=== PATIENT | male | born 1965 | race Caucasian/White ===

== ENCOUNTER 2016-04-09 16:44 | Emergency (ER) | payer BC, MEDICARE ==
[2016-04-09] MEDS ORDERED: NORCO, ANEXSIA 5/325MG TABLET (HYDROcodone/ACETAMINOPHEN) As Ordered ONE (18:55)
--- NOTE | 2016-04-09 20:00 | REPUSA ---
Clinical history: left axillary mass. Findings: Real-time ultrasound imaging of the left axilla was performed. There is a complex collectio n in the proximal left upper arm in the axillary region measuring 1.6 x 0.9 x 1.5 cm. The lesion appe ars to be predominately solid in nature and is well circumscribed. The mass appears to be located in the subcutaneous tissues. Impression: Discrete complex lesion as described. Differential diagnosis includes necrotic lymph node versus abscess. Follow-up is suggested as clinically indicated.
[2016-04-09] MEDS ORDERED: NORCO 5/325MG TABLET (BULK) As Ordered ONE (20:30)
[2016-04-09] MEDS ORDERED: BACTRIM 160MG/800MG DS TAB As Ordered ONE (20:30)
--- NOTE | 2016-04-09 20:43 | EDDOCDS ---
Nurse's Notes [facility] Name: Cruzito Somers Age: 50 yrs Sex: Male : 1965 Arrival Date: 04/09/2016 Time: 16:44 Bed TR2 Private MD: NO PRIMARY PHYSICIAN, . Diagnosis: Localized enlarged lymph nodes-VERSUS EARLY ABSCESS Presentation: 04/09 16:52 Presenting complaint: Patient states: boil to left arm pit that started a few months dsf ago and it has gotten worse the past week. Adult Sepsis Screening: The patient does not have new or worsening altered mentation. Patient's respiratory rate is less than 22. Systolic blood pressure is greater than 100. Patient has a qSOFA score of 0- Negative Sepsis Screen. Status: Patient is not a donor services team leader or dependent. Transition of care: patient was not received from another setting of care. 16:52 Acuity: KLEBER Level 4 dsf 16:52 Method Of Arrival: Walkin/Carried/Asstd dsf Triage Assessment: 16:54 General: Appears in no apparent distress, Behavior is appropriate for age, cooperative. dsf Pain: Location: left axilla Pain currently is 8 out of 10 on a pain scale. Quality of pain is described as sharp. HIV screening NA for this visit Offered previously. Historical: - Allergies: no known allergies; - Home Meds: 1. none - PMHx: none; - PSHx: Knee Arthroscopy; Vasectomy; - Social history: Smoking status: Patient uses tobacco products, current every day smoker. No barriers to communication noted, The patient speaks fluent Georgian, Speaks appropriately for age. - Family history: Not pertinent. - : The pt / caregiver states he / she is not on anticoagulants. Home medication list is obtained from the patient. - Exposure Risk Screening:: None identified. Screenin:42 Screening information is obtained from the patient. Fall risk: No risks identified. cz Assistance ADL's: requires no assistance with activities of daily living. Abuse/DV Screen: The patient / caregiver reports he/she is: not in a situation that causes fear, pain or injury. Nutritional screening: No deficits noted. home support is adequate. Assessment: 18:56 General: Appears in no apparent distress, Behavior is appropriate for age, cooperative. dsf Pain: Location: left axilla. Neurological: Level of Consciousness is awake, alert. Cardiovascular: Capillary refill < 3 seconds. Respiratory: Airway is patent Respiratory effort is even, unlabored, Respiratory pattern is regular, symmetrical. Derm: Skin is pink, warm & dry. Musculoskeletal: Reports pain to left axilla when arm is down. Vital Signs: 16:46 BP 122 / 80; Pulse 74; Resp 18 S; Temp 96.1(O); Pulse Ox 97% on R/A; Weight 88.45 kg gr2 (R); Height 6 ft. 1 in. (185.42 cm) (R); Pain 5/10; 20:21 BP 130 / 78; Pulse 65; Resp 18; Temp 96.5(O); Pulse Ox 97% on R/A; Pain 7/10; mdr 16:46 Body Mass Index 25.73 (88.45 kg, 185.42 cm) gr2 Vitals: 16:46 Log In Time: April 09, 2016 at 16:46. gr2 ED Course: 16:46 Patient visited by Carlos Alberto Howard. gr2 16:46 NO PRIMARY PHYSICIAN, . is Private Physician. gr2 16:46 Patient moved to Waiting gr2 16:48 Patient visited by Carlos Alberto Howard. gr2 16:48 Patient moved to Pre RCE gr2 16:53 Triage Initiated dsf 18:28 Patient moved to Triage 1 mdr 18:46 Alberto Maria RPA-C is PHCP. ck7 18:46 Laura Dudley MD is Attending Physician. ck7 18:46 Patient visited by Alberto Maria RPA-C. ck7 18:57 Patient visited by Kitty Martinez RN. dsf 18:57 Patient moved to TR7 dsf 19:15 PENDING SALE TO [facility] Payment Agreement was scanned into [employer] and attached to record. ks16 19:39 Patient visited by Alberto Maria RPA-C. ck7 20:14 Patient moved to PR1 / 25 cz 20:14 EXTREMITY NON VASCUL LIMITED Returned. EDMS 20:27 Patient visited by Ad Feldman PCA. mdr 20:27 Jacob Luna DO is Referral Physician. ck7 20:40 Patient moved to TR2 cz 20:42 The patient / caregiver is instructed regarding the plan of care and ED course. cz 20:42 No IV's were initiated during this patient's visit. No procedures done that require cz assistance. Administered Medications: 18:56 Drug: HYDROcodone-acetaminophen 1 tabs [hydrocodone 5 mg-acetaminophen 325 mg tablet (1 dsf tabs)] Route: PO; 20:40 Drug: Trimethoprim-Sulfamethoxazole 1 tabs [sulfamethoxazole 800 mg-trimethoprim 160 mg cz tablet (1 tabs)] Route: PO; 20:41 Drug: HYDROcodone-acetaminophen 4 pack- 1 packets [hydrocodone 5 mg-acetaminophen 325 cz mg tablet (1 tabs)] {Co-Signature: [email or web address] (Tiana Simon RN).} Route: PO; Order Results: Radiology Order: EXTREMITY NON VASCUL LIMITED Test: EXTREMITY NON VASCUL LIMITED REASON FOR EXAMINATION: L AXILLA, R/O ABSCESSV LYMPH NODE; ; Clinical history: left axillary mass.; Findings: Real-time ultrasound imaging of the left axilla was performed. There is a complex collectio; n in the proximal left upper arm in the axillary region measuring 1.6 x 0.9 x 1.5 cm. The lesion appe; ars to be predominately solid in nature and is well circumscribed. The mass appears to be located in; the subcutaneous tissues.; Impression: Discrete complex lesion as described. Differential diagnosis includes necrotic lymph node; versus abscess. Follow-up is suggested as clinically indicated.; ; Outcome: 20:27 Discharge ordered by Provider. ck7 20:41 Discharge Assessment: Patient awake, alert and oriented x 3. No cognitive and/or cz functional deficits noted. Patient verbalized understanding of disposition instructions. patient administered narcotics - yes. Pt provided with safe discharge. The following High Risk Discharge criteria are identified: None. Discharged to home ambulatory, with significant other. Condition: stable. Discharge instructions given to patient, Instructed on discharge instructions, follow up and referral plans. medication usage, Demonstrated understanding of instructions, medications, Pt was receptive of discharge instructions/ teaching. Prescriptions given X 2. Ultrasound Study completed. Property :Personal belongings accompany Pt. 20:43 Patient left the ED. cz Signatures: Dispatcher [facility] EDDC Hiram Heano RN RN cz Fuller, Desiree, RN RN dsf Kwaczala, Christopher, RPA-C RPA-Cck7 Carlos Alberto Howard gr2 Ad Feldman, APPAREL TRIMMINGS SALES REPRESENTATIVE APPAREL TRIMMINGS SALES REPRESENTATIVE mdr Rhonda Sal, Reg Reg ks16 Tiana Simon RN jo3 MTDD
--- NOTE | 2016-04-09 20:43 | EDDOCDS ---
Physician Documentation [facility] Name: Cruzito Somers Age: 50 yrs Sex: Male : 1965 Arrival Date: 04/09/2016 Time: 16:44 Bed TR2 Private MD: NO PRIMARY PHYSICIAN, . Disposition: 04/09/16 20:27 Discharged to Home/Self Care. Impression: Localized enlarged lymph nodes - VERSUS EARLY ABSCESS. - Condition is Stable. - Discharge Instructions: Abscess, Lymphadenopathy. - Prescriptions for Home 5- 325 mg Oral Tablet - take 1 tablet by ORAL route every 6 hours As needed MDD: 4 tabs; 16 tablet. Bactrim DS 800- 160 mg Oral Tablet - take 1 tablet by ORAL route every 12 hours for 10 days; 20 tablet. - Medication Reconciliation, Local Pharmacy Hours form. - Follow up: Jacob Luna DO; When: 1 - 2 days; Reason: Recheck today's complaints, Continuance of care. - Problem is new. - Symptoms have improved. - Notes: USE MEDICATIONS INSTRUTCED, FOLLOW UP WITH DR LUNA, RETURN TO THE ER IF FEVER, INCREASED PAIN OR OTHER CONCERNING SYMPTOMS ARISE Historical: - Allergies: no known allergies; - Home Meds: 1. none - PMHx: none; - PSHx: Knee Arthroscopy; Vasectomy; - Social history: Smoking status: Patient uses tobacco products, current every day smoker. No barriers to communication noted, The patient speaks fluent Belarusian, Speaks appropriately for age. - Family history: Not pertinent. - : The pt / caregiver states he / she is not on anticoagulants. Home medication list is obtained from the patient. - Exposure Risk Screening:: None identified. Vital Signs: 04/09 16:46 BP 122 / 80; Pulse 74; Resp 18 S; Temp 96.1(O); Pulse Ox 97% on R/A; Weight 88.45 kg / gr2 195 lbs (R); Height 6 ft. 1 in. (185.42 cm) (R); Pain 5/10; 20:21 BP 130 / 78; Pulse 65; Resp 18; Temp 96.5(O); Pulse Ox 97% on R/A; Pain 7/10; mdr 16:46 Body Mass Index 25.73 (88.45 kg, 185.42 cm) gr2 MDM: 18:54 HYDROcodone-acetaminophen 5 mg-325 mg 1 tabs PO once ordered. ck7 19:01 EXTREMITY NON VASCUL LIMITED Ordered. EDMS 19:15 Financial registration complete. ks16 19:15 [facility] Payment Agreement was scanned into [employer] and attached to record. ks16 20:26 HYDROcodone-acetaminophen 4 pack- 5 mg-325 mg 1 packets PO Per package directions; ck7 Dispense with patient. 1 po q4h prn for pain ordered. 20:26 Trimethoprim-Sulfamethoxazole 160 mg-800 mg (DS) 1 tabs PO once ordered. ck7 Administered Medications: 18:56 Drug: HYDROcodone-acetaminophen 1 tabs [hydrocodone 5 mg-acetaminophen 325 mg tablet (1 dsf tabs)] Route: PO; 20:40 Drug: Trimethoprim-Sulfamethoxazole 1 tabs [sulfamethoxazole 800 mg-trimethoprim 160 mg cz tablet (1 tabs)] Route: PO; 20:41 Drug: HYDROcodone-acetaminophen 4 pack- 1 packets [hydrocodone 5 mg-acetaminophen 325 cz mg tablet (1 tabs)] {Co-Signature: [email or web address] (Tiana Simon RN).} Route: PO; Signatures: Dispatcher [employer] EDMS Hiram Henao RN RN cz Fuller, Desiree, RN RN dsf Alberto Maria RPA-C RPA-Cck7 Rhonda Sal, Reg Reg ks16 Tiana alanis The chart was reviewed and I authenticate all verbal orders and agree with the evaluation and treatment provided.Corrections: (The following items were deleted from the chart) 19: 18:55 DUPLEX Ext. UPPER UNILATE+US ordered. EDMS EDMS Attachments: 19:15 [facility] Payment Agreement ks16 MTDD
--- NOTE | 2016-04-11 21:44 | EDDOCDS ---
Physician Documentation [facility] Name: Cruzito Somers Age: 50 yrs Sex: Male : 1965 Arrival Date: 04/09/2016 Time: 16:44 Bed TR2 Private MD: NO PRIMARY PHYSICIAN, . Disposition: 04/09/16 20:27 Discharged to Home/Self Care. Impression: Localized enlarged lymph nodes - VERSUS EARLY ABSCESS. - Condition is Stable. - Discharge Instructions: Abscess, Lymphadenopathy. - Prescriptions for Orange 5- 325 mg Oral Tablet - take 1 tablet by ORAL route every 6 hours As needed MDD: 4 tabs; 16 tablet. Bactrim DS 800- 160 mg Oral Tablet - take 1 tablet by ORAL route every 12 hours for 10 days; 20 tablet. - Medication Reconciliation, Local Pharmacy Hours form. - Follow up: Jacob Luna DO; When: 1 - 2 days; Reason: Recheck today's complaints, Continuance of care. - Problem is new. - Symptoms have improved. - Notes: USE MEDICATIONS INSTRUTCED, FOLLOW UP WITH DR LUNA, RETURN TO THE ER IF FEVER, INCREASED PAIN OR OTHER CONCERNING SYMPTOMS ARISE Historical: - Allergies: no known allergies; - Home Meds: 1. none - PMHx: none; - PSHx: Knee Arthroscopy; Vasectomy; - Social history: Smoking status: Patient uses tobacco products, current every day smoker. No barriers to communication noted, The patient speaks fluent Portuguese, Speaks appropriately for age. - Family history: Not pertinent. - : The pt / caregiver states he / she is not on anticoagulants. Home medication list is obtained from the patient. - Exposure Risk Screening:: None identified. Vital Signs: 04/09 16:46 BP 122 / 80; Pulse 74; Resp 18 S; Temp 96.1(O); Pulse Ox 97% on R/A; Weight 88.45 kg / gr2 195 lbs (R); Height 6 ft. 1 in. (185.42 cm) (R); Pain 5/10; 20:21 BP 130 / 78; Pulse 65; Resp 18; Temp 96.5(O); Pulse Ox 97% on R/A; Pain 7/10; mdr 16:46 Body Mass Index 25.73 (88.45 kg, 185.42 cm) gr2 MDM: 18:54 HYDROcodone-acetaminophen 5 mg-325 mg 1 tabs PO once ordered. ck7 19:01 EXTREMITY NON VASCUL LIMITED Ordered. EDMS 19:15 Financial registration complete. ks16 : [facility] Payment Agreement was scanned into [employer] and attached to record. ks16 20:26 HYDROcodone-acetaminophen 4 pack- 5 mg-325 mg 1 packets PO Per package directions; ck7 Dispense with patient. 1 po q4h prn for pain ordered. 20:26 Trimethoprim-Sulfamethoxazole 160 mg-800 mg (DS) 1 tabs PO once ordered. ck7 04/10 12:32 T-Sheet-- Draft Copy was scanned into [employer] and attached to record. gb 12:32 Radiology Report was scanned into [employer] and attached to record. gb Administered Medications: 04/09 18:56 Drug: HYDROcodone-acetaminophen 1 tabs [hydrocodone 5 mg-acetaminophen 325 mg tablet (1 dsf tabs)] Route: PO; 20:40 Drug: Trimethoprim-Sulfamethoxazole 1 tabs [sulfamethoxazole 800 mg-trimethoprim 160 mg cz tablet (1 tabs)] Route: PO; 20:41 Drug: HYDROcodone-acetaminophen 4 pack- 1 packets [hydrocodone 5 mg-acetaminophen 325 cz mg tablet (1 tabs)] {Co-Signature: zeke (Tiana Simon RN).} Route: PO; Signatures: Dispatcher [employer] EDMS Hiram Henao RN RN cz Barnhardt, Gloria, Reg Reg gb Kitty Martinez RN RN dsf Alberto Maria, RPA-C RPA-Cck7 Rhonda Sal, Reg Reg ks16 Tiana alanis The chart was reviewed and I authenticate all verbal orders and agree with the evaluation and treatment provided.Corrections: (The following items were deleted from the chart) 19: 18:55 DUPLEX Ext. UPPER UNILATE+US ordered. EDMS EDMS Attachments: 19:15 [facility] Payment Agreement 16 04/10 12:32 T-Sheet-- Draft Copy gb Chart Complete MTDD
--- NOTE | 2016-04-11 21:44 | EDDOCDS ---
Physician Documentation [facility] Name: Cruzito Somers Age: 50 yrs Sex: Male : 1965 Arrival Date: 04/09/2016 Time: 16:44 Bed TR2 Private MD: NO PRIMARY PHYSICIAN, . Disposition: 04/09/16 20:27 Discharged to Home/Self Care. Impression: Localized enlarged lymph nodes - VERSUS EARLY ABSCESS. - Condition is Stable. - Discharge Instructions: Abscess, Lymphadenopathy. - Prescriptions for [place] 5- 325 mg Oral Tablet - take 1 tablet by ORAL route every 6 hours As needed MDD: 4 tabs; 16 tablet. Bactrim DS 800- 160 mg Oral Tablet - take 1 tablet by ORAL route every 12 hours for 10 days; 20 tablet. - Medication Reconciliation, Local Pharmacy Hours form. - Follow up: Jacob Luna DO; When: 1 - 2 days; Reason: Recheck today's complaints, Continuance of care. - Problem is new. - Symptoms have improved. - Notes: USE MEDICATIONS INSTRUTCED, FOLLOW UP WITH DR LUNA, RETURN TO THE ER IF FEVER, INCREASED PAIN OR OTHER CONCERNING SYMPTOMS ARISE Historical: - Allergies: no known allergies; - Home Meds: 1. none - PMHx: none; - PSHx: Knee Arthroscopy; Vasectomy; - Social history: Smoking status: Patient uses tobacco products, current every day smoker. No barriers to communication noted, The patient speaks fluent Sinhala, Speaks appropriately for age. - Family history: Not pertinent. - : The pt / caregiver states he / she is not on anticoagulants. Home medication list is obtained from the patient. - Exposure Risk Screening:: None identified. Vital Signs: 04/09 16:46 BP 122 / 80; Pulse 74; Resp 18 S; Temp 96.1(O); Pulse Ox 97% on R/A; Weight 88.45 kg / gr2 195 lbs (R); Height 6 ft. 1 in. (185.42 cm) (R); Pain 5/10; 20:21 BP 130 / 78; Pulse 65; Resp 18; Temp 96.5(O); Pulse Ox 97% on R/A; Pain 7/10; mdr 16:46 Body Mass Index 25.73 (88.45 kg, 185.42 cm) gr2 MDM: 18:54 HYDROcodone-acetaminophen 5 mg-325 mg 1 tabs PO once ordered. ck7 19:01 EXTREMITY NON VASCUL LIMITED Ordered. EDMS 19:15 Financial registration complete. ks16 : [facility] Payment Agreement was scanned into [employer] and attached to record. ks16 20:26 HYDROcodone-acetaminophen 4 pack- 5 mg-325 mg 1 packets PO Per package directions; ck7 Dispense with patient. 1 po q4h prn for pain ordered. 20:26 Trimethoprim-Sulfamethoxazole 160 mg-800 mg (DS) 1 tabs PO once ordered. ck7 04/10 12:32 T-Sheet-- Draft Copy was scanned into [employer] and attached to record. gb 12:32 Radiology Report was scanned into [employer] and attached to record. gb Administered Medications: 04/09 18:56 Drug: HYDROcodone-acetaminophen 1 tabs [hydrocodone 5 mg-acetaminophen 325 mg tablet (1 dsf tabs)] Route: PO; 20:40 Drug: Trimethoprim-Sulfamethoxazole 1 tabs [sulfamethoxazole 800 mg-trimethoprim 160 mg cz tablet (1 tabs)] Route: PO; 20:41 Drug: HYDROcodone-acetaminophen 4 pack- 1 packets [hydrocodone 5 mg-acetaminophen 325 cz mg tablet (1 tabs)] {Co-Signature: zeke (Tiana Simon RN).} Route: PO; Signatures: Dispatcher [employer] EDMS Hiram Henao RN RN cz Barnhardt, Gloria, Reg Reg gb Kitty Martinez RN RN dsf Alberto Maria, RPA-C RPA-Cck7 Rhonda Sal, Reg Reg ks16 Tiana alanis The chart was reviewed and I authenticate all verbal orders and agree with the evaluation and treatment provided.Corrections: (The following items were deleted from the chart) 19: 18:55 DUPLEX Ext. UPPER UNILATE+US ordered. EDMS EDMS Attachments: 19:15 [facility] Payment Agreement 16 04/10 12:32 T-Sheet-- Draft Copy gb Chart Complete MTDD
--- NOTE | 2016-04-11 21:44 | EDDOCDS ---
Nurse's Notes [facility] Name: Cruzito Somers Age: 50 yrs Sex: Male : 1965 Arrival Date: 04/09/2016 Time: 16:44 Bed TR2 Private MD: NO PRIMARY PHYSICIAN, . Diagnosis: Localized enlarged lymph nodes-VERSUS EARLY ABSCESS Presentation: 04/09 16:52 Presenting complaint: Patient states: boil to left arm pit that started a few months dsf ago and it has gotten worse the past week. Adult Sepsis Screening: The patient does not have new or worsening altered mentation. Patient's respiratory rate is less than 22. Systolic blood pressure is greater than 100. Patient has a qSOFA score of 0- Negative Sepsis Screen. Status: Patient is not a service tech/welder or dependent. Transition of care: patient was not received from another setting of care. 16:52 Acuity: KLEBER Level 4 dsf 16:52 Method Of Arrival: Walkin/Carried/Asstd dsf Triage Assessment: 16:54 General: Appears in no apparent distress, Behavior is appropriate for age, cooperative. dsf Pain: Location: left axilla Pain currently is 8 out of 10 on a pain scale. Quality of pain is described as sharp. HIV screening NA for this visit Offered previously. Historical: - Allergies: no known allergies; - Home Meds: 1. none - PMHx: none; - PSHx: Knee Arthroscopy; Vasectomy; - Social history: Smoking status: Patient uses tobacco products, current every day smoker. No barriers to communication noted, The patient speaks fluent Iranian, Speaks appropriately for age. - Family history: Not pertinent. - : The pt / caregiver states he / she is not on anticoagulants. Home medication list is obtained from the patient. - Exposure Risk Screening:: None identified. Screenin:42 Screening information is obtained from the patient. Fall risk: No risks identified. cz Assistance ADL's: requires no assistance with activities of daily living. Abuse/DV Screen: The patient / caregiver reports he/she is: not in a situation that causes fear, pain or injury. Nutritional screening: No deficits noted. home support is adequate. Assessment: 18:56 General: Appears in no apparent distress, Behavior is appropriate for age, cooperative. dsf Pain: Location: left axilla. Neurological: Level of Consciousness is awake, alert. Cardiovascular: Capillary refill < 3 seconds. Respiratory: Airway is patent Respiratory effort is even, unlabored, Respiratory pattern is regular, symmetrical. Derm: Skin is pink, warm & dry. Musculoskeletal: Reports pain to left axilla when arm is down. Vital Signs: 16:46 BP 122 / 80; Pulse 74; Resp 18 S; Temp 96.1(O); Pulse Ox 97% on R/A; Weight 88.45 kg gr2 (R); Height 6 ft. 1 in. (185.42 cm) (R); Pain 5/10; 20:21 BP 130 / 78; Pulse 65; Resp 18; Temp 96.5(O); Pulse Ox 97% on R/A; Pain 7/10; mdr 16:46 Body Mass Index 25.73 (88.45 kg, 185.42 cm) gr2 Vitals: 16:46 Log In Time: April 09, 2016 at 16:46. gr2 ED Course: 16:46 Patient visited by Carlos Alberto Howard. gr2 16:46 NO PRIMARY PHYSICIAN, . is Private Physician. gr2 16:46 Patient moved to Waiting gr2 16:48 Patient visited by Carlos Alberto Howard. gr2 16:48 Patient moved to Pre RCE gr2 16:53 Triage Initiated dsf 18:28 Patient moved to Triage 1 mdr 18:46 Alberto Maria RPA-C is PHCP. ck7 18:46 Laura Dudley MD is Attending Physician. ck7 18:46 Patient visited by Alberto Marai RPA-C. ck7 18:57 Patient visited by Kitty Martinez RN. dsf 18:57 Patient moved to TR7 dsf 19:15 [facility] Payment Agreement was scanned into [employer] and attached to record. ks16 19:39 Patient visited by Alberto Maria RPA-C. ck7 20:14 Patient moved to PR1 / 25 cz 20:14 EXTREMITY NON VASCUL LIMITED Returned. EDMS 20:27 Patient visited by Ad Feldman PCA. mdr 20:27 Jacob Luna DO is Referral Physician. ck7 20:40 Patient moved to TR2 cz 20:42 The patient / caregiver is instructed regarding the plan of care and ED course. cz 20:42 No IV's were initiated during this patient's visit. No procedures done that require cz assistance. 04/10 12:32 T-Sheet-- Draft Copy was scanned into [employer] and attached to record. gb 12:32 Radiology Report was scanned into [employer] and attached to record. gb Administered Medications: 04/09 18:56 Drug: HYDROcodone-acetaminophen 1 tabs [hydrocodone 5 mg-acetaminophen 325 mg tablet (1 dsf tabs)] Route: PO; 20:40 Drug: Trimethoprim-Sulfamethoxazole 1 tabs [sulfamethoxazole 800 mg-trimethoprim 160 mg cz tablet (1 tabs)] Route: PO; 20:41 Drug: HYDROcodone-acetaminophen 4 pack- 1 packets [hydrocodone 5 mg-acetaminophen 325 cz mg tablet (1 tabs)] {Co-Signature: [email or web address] (Tiana Simon RN).} Route: PO; Order Results: Radiology Order: EXTREMITY NON VASCUL LIMITED Test: EXTREMITY NON VASCUL LIMITED REASON FOR EXAMINATION: L AXILLA, R/O ABSCESSV LYMPH NODE; ; Clinical history: left axillary mass.; Findings: Real-time ultrasound imaging of the left axilla was performed. There is a complex collectio; n in the proximal left upper arm in the axillary region measuring 1.6 x 0.9 x 1.5 cm. The lesion appe; ars to be predominately solid in nature and is well circumscribed. The mass appears to be located in; the subcutaneous tissues.; Impression: Discrete complex lesion as described. Differential diagnosis includes necrotic lymph node; versus abscess. Follow-up is suggested as clinically indicated.; ; Outcome: 20:27 Discharge ordered by Provider. ck7 20:41 Discharge Assessment: Patient awake, alert and oriented x 3. No cognitive and/or cz functional deficits noted. Patient verbalized understanding of disposition instructions. patient administered narcotics - yes. Pt provided with safe discharge. The following High Risk Discharge criteria are identified: None. Discharged to home ambulatory, with significant other. Condition: stable. Discharge instructions given to patient, Instructed on discharge instructions, follow up and referral plans. medication usage, Demonstrated understanding of instructions, medications, Pt was receptive of discharge instructions/ teaching. Prescriptions given X 2. Ultrasound Study completed. Property :Personal belongings accompany Pt. 20:43 Patient left the ED. cz Signatures: Dispatcher [employer] EDMS Hiram Henao, RN RN cz Amber Steward, Reg Reg gb Kitty Martinez,RN RN dsf Alberto Maria, RPA-C RPA-Cck7 Carlos Alberto Howard gr2 Ad Feldman, GROUT WORKER GROUT WORKER mdr Rhonda Sal, Reg Reg ks16 Tiana Simon RN jo3 Chart Complete MTDD
== END 2016-04-09 20:43 | disposition home or self-care (01) ==
LOC: M ED 16:44
DX: R22.32 Localized swelling, mass and lump, left upper limb (principal); F17.210 Nicotine dependence, cigarettes, uncomplicated

== ENCOUNTER 2025-01-30 09:33 | Emergency (ER) | payer BC, MEDICARE ==
[~2025-01-30] VITALS: Ht 185.4 cm; Wt 99.4 kg
[2025-01-30] MEDS ORDERED: GABA-1490 PO (09:42)
[2025-01-30] MEDS ORDERED: MIRT45TA68 (09:42)
[2025-01-30] MEDS ORDERED: PANT40TA29 PO (09:42)
[2025-01-30] MEDS ORDERED: CITA10TA7 PO (09:42)
[2025-01-30 10:42] LABS: BASO # 0.1 10^3/uL (0.0-0.2); BASO % 1.1 % (0.0-1.0); EOS # 0.3 10^3/uL (0.0-0.5); EOS % 2.9 % (0.0-3.0); LYMPH # 3.9 10^3/uL (1.5-5.0); LYMPH % 44.4 % (24.0-44.0); MONO # 0.5 10^3/uL (0.0-0.8); MONO % 6.2 % (2.0-8.0); NEUTROPHILS # 3.9 10^3/uL (1.5-8.5); NEUTROPHILS % 45.2 % (36.0-66.0); PLATELET COUNT, AUTOMATED 235 10^3/uL (150-450)
[2025-01-30 10:59] LABS: APPEARANCE, URINE CLEAR (CLEAR); BACTERIA, URINE AUTO NEGATIVE (NEGATIVE); BILIRUBIN, URINE AUTO NEGATIVE (NEGATIVE); BLOOD, URINE BLOOD 2+ (NEGATIVE); GLUCOSE, URINE (UA) AUTO NEGATIVE (NEGATIVE); KETONE, URINE AUTO NEGATIVE (NEGATIVE); LEUKOCYTE ESTERASE, URINE AUTO NEGATIVE (NEGATIVE); NITRITE, URINE AUTO NEGATIVE (NEGATIVE); PROTEIN, URINE AUTO NEGATIVE (NEGATIVE); RBC, URINE AUTO 5 /HPF (0-3); SPECIFIC GRAVITY URINE AUTO 1.009 (1.002-1.035); SQUAMOUS EPITHELIAL CELL UR AU 0 /HPF (0-6); UROBILINOGEN, URINE AUTO 0.2 mg/dL (0.0-2.0); WBC, URINE AUTO 0 /HPF (0-3)
[2025-01-30 11:06] LABS: ALT/SGPT 41.0 U/L (7.0-40); AST/SGOT 33.0 U/L (<34); CALCIUM LEVEL 8.5 MG/DL (8.5-10.1); CARBON DIOXIDE LEVEL 26.0 MMOL/L (20-31); CHLORIDE LEVEL 113.0 MMOL/L (98-107); CREATININE FOR GFR 0.98 MG/DL (0.70-1.30); GLOMERULAR FILTRATION RATE 88.8 (>56); POTASSIUM SERUM 4.5 MMOL/L (3.5-5.1); SODIUM LEVEL 144.0 MMOL/L (136-145)
[2025-01-30] MEDS: KETOROLAC 30 MG/ML 1 ML VIAL IV ONE (11:38)
[2025-01-30] MEDS ORDERED: MIRT-88 PO (12:33)
[2025-01-30] MEDS ORDERED: HOME MED LIST COMPLETE! XX SCH (12:35)
[2025-01-30] MEDS: hydroCHLOROthiazide 25 MG TAB PO ONE (13:22)
[2025-01-30] MEDS: amLODIPine 5 MG TAB PO ONE (14:30)
[2025-01-30 18:03] VITALS: BP 178/113
[2025-01-30] MEDS: **hydrALAZINE HCL** 25 MG TAB PO ONE (18:03)
[2025-01-30 18:54] VITALS: BP 162/88; TEMP 97.8; O2SAT 99
[2025-01-30] MEDS ORDERED: HYDR25TA87 PO (18:58)
[2025-01-30] MEDS ORDERED: KETO-204 PO (18:58)
== END 2025-01-30 19:21 | disposition home or self-care (01) ==
LOC: M ED 09:33
DX: K08.89 Other specified disorders of teeth and supporting structures (principal); I10 Essential (primary) hypertension; K21.9 Gastro-esophageal reflux disease without esophagitis; F17.200 Nicotine dependence, unspecified, uncomplicated; Z79.899 Other long term (current) drug therapy
CPT/HCPCS: 80048; 80076; 81001; 85025; 93005; 96374; 99285; J1885